=== PATIENT | female | born 2000 | race Hispanic/Latino ===

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

== ENCOUNTER 2023-09-17 00:05 | Emergency (ER) | payer MEDICAID, SELFPAY | END 2023-09-17 01:26 | disposition home or self-care (01) | LOC: ERS 00:05 | DX: F19.90 Other psychoactive substance use, unspecified, uncomplicated (principal); J45.909 Unspecified asthma, uncomplicated | CPT/HCPCS: 99283 ==

== ENCOUNTER 2025-04-30 09:48 | Outpatient (CLI) | payer OTHER | END 2025-04-30 09:49 | disposition home or self-care (01) | LOC: ULT 09:48 | PROVIDERS: ATTEND Family Medicine | DX: Z34.02 Encounter for supervision of normal first pregnancy, second trimester (principal); Z3A.20 20 weeks gestation of pregnancy | CPT/HCPCS: 76805 ==